=== PATIENT | female | born 1980 | race American Indian/Alaskan Native ===

== ENCOUNTER 2018-07-29 12:32 | Emergency (ER) | payer MEDICARE, MEDICAID ==
--- NOTE | 2018-07-29 13:04 | EDM.PDOC ---
ED HPI GENERAL MEDICAL PROBLEM - General Chief Complaint: IV Access Related Stated Complaint: AMBULANCE Time Seen by Provider: 07/29/18 13:03 Source of Information: Reports: Patient, EMS, Old Records, RN, RN Notes Reviewed History Limitations: Reports: No Limitations - History of Present Illness INITIAL COMMENTS - FREE TEXT/NARRATIVE: Pt sent to ER by ambulance by home health nurse with report that pt's Rt upper arm PICC line is occluded. The line will flush, but slowly, and blood cannot be drawn back. The pt reports some mild soreness in the area, but denies redness, fever, chills, or swelling. Onset: Unknown/Unsure Duration: Constant Improves with: Reports: None Worsens with: Reports: None Right Upper Arm Pain Score (Numeric/FACES): 7 - Related Data Allergies Allergy/AdvReac Type Severity Reaction Status Date / Time No Known Allergies Allergy Verified 04/30/13 19:10 Home Meds: Home Meds Fish Oil/[place]-3 Fatty Acids [Fish Oil] 1 each PO 04/30/13 [History] Gabapentin 04/30/13 [History] Multivitamin with Minerals [Multiple Vitamin] 1 tab PO DAILY 04/30/13 [History] Past Medical History Musculoskeletal History: Reports: Other (See Below) Other Musculoskeletal History: quadapalegic Dermatologic History: Reports: Decubitus Ulcer Social & Family History - Tobacco Use Smoking Status *Q: Never Smoker Second Hand Smoke Exposure: No - Recreational Drug Use Recreational Drug Use: No - Living Situation & Occupation Occupation: Disabled ED ROS GENERAL - Review of Systems Review Of Systems: ROS reveals no pertinent complaints other than HPI. ED EXAM, GENERAL - Physical Exam Exam: See Below Exam Limited By: Physical Impairment (quadraplegic) General Appearance: Alert, No Apparent Distress, Obese Throat/Mouth: Normal Voice Head: Atraumatic, Normocephalic Neck: Normal Inspection Respiratory/Chest: No Respiratory Distress Cardiovascular: Regular Rate, Rhythm, Bradycardia Peripheral Pulses: 3+: Radial (L), Radial (R) Extremities: Normal Capillary Refill, Other (mild tenderness to palpation around the PICC line insertion with no visible swelling, bruising, increased warmth or erythema). No: Increased Warmth, Redness Neurological: Alert, Oriented Psychiatric: Normal Mood Skin Exam: Warm, Dry Course - Vital Signs Last Recorded V/S: Last Vital Signs Temp 36.4 C 07/29/18 12:42 Pulse 48 L 07/29/18 12:42 Resp 18 07/29/18 12:42 BP 88/46 L 07/29/18 12:42 Pulse Ox 98 07/29/18 12:42 - Orders/Labs/Meds Meds: Medications Discontinued Medications Generic Name Dose Route Start Last Admin Trade Name Jeannie PRN Reason Stop Dose Admin Alteplase, Recombinant 2 mg 07/29/18 13:19 07/29/18 13:57 Cathflo Activase IVPUSH 07/29/18 13:20 2 mg ONETIME ONE Administration RN reports successful flush and draw back following PICC line Alteplase. Departure - Departure Time of Disposition: 16:13 Disposition: Home, Self-Care 01 Condition: Good Clinical Impression: Occlusion of peripherally inserted central catheter (PICC) line Qualifiers: Encounter type: initial encounter Qualified Code(s): T82.898A - Other specified complication of vascular prosthetic devices, implants and grafts, initial encounter - Discharge Information *PRESCRIPTION DRUG MONITORING PROGRAM REVIEWED*: No *COPY OF PRESCRIPTION DRUG MONITORING REPORT IN PATIENT ALEXIS: No Instructions: PICC Home Care Guide Forms: ED Department Discharge Additional Instructions: Continue PICC line care routine with your home health nurse.
[2018-07-29] MEDS ORDERED: Alteplase 2 MG Vial IVPUSH ONE (13:19)
== END 2018-07-29 16:48 | disposition home or self-care (01) ==
LOC: DL.ED 12:32
DX: T82.898A Other specified complication of vascular prosthetic devices, implants and grafts, initial encounter (principal); Z79.899 Other long term (current) drug therapy
CPT/HCPCS: 96374; 99284; J2997; 36415; 82565; 84460; 85025; 85651; 86140

== ENCOUNTER 2024-06-30 12:50 | Emergency (ER) | payer MEDICARE, MEDICAID ==
[2024-06-30 14:09] LABS: BASOPHILS PERCENT AUTO 0.1 % (0.0-1.0); HEMOGLOBIN 10.8 g/dL (12.0-16.0); MEAN CORPUSCULAR HEMOGLOBIN 28.6 pg (27.0-34.0); MEAN CORPUSCULAR HGB CONC 30.9 g/dL (33.0-35.0); MEAN CORPUSCULAR VOLUME 92.8 fL (80-100); MONOCYTES PERCENT AUTO 11.9 % (2-8); PLATELET COUNT,PLT 281 10^3/uL (150-450); RED BLOOD CELL COUNT 3.77 10^6/uL (4.2-5.4); WHITE BLOOD CELL COUNT,WBC 8.3 10^3/uL (5.0-10.0)
[2024-06-30 14:34] LABS: LACTIC ACID 1.3 mmol/L (0.4-2.0)
[2024-06-30 14:37] LABS: A/G RATIO 0.65; ALANINE AMINOTRANSFERASE,ALT 33 U/L (14-59); ALBUMIN 2.8 g/dL (3.4-5.0); ALKALINE PHOSPHATASE 87 U/L (46-116); ANION GAP 10.2 mEq/L (7-13); ASPARTATE AMNIOTRANSFERASE,AST 14 U/L (15-37); BILIRUBIN TOTAL 0.5 mg/dL (0.2-1.0); BLOOD UREA NITROGEN,BUN 9 mg/dL (7-18); BUN/CREATININE RATIO 10.2 (No establ ref range); CALCIUM 8.5 mg/dL (8.5-10.1); CARBON DIOXIDE,CO2 27 mmol/L (21-32); CHLORIDE,CL 102 mmol/L (98-107); CREATININE 0.88 mg/dL (0.55-1.02); ESTIMATED GFR 83 mL/min (>=60); GLUCOSE RANDOM 123 mg/dL (70-99); POTASSIUM,K 4.2 mmol/L (3.5-5.1); PROTEIN TOTAL,TP 7.1 g/dL (6.4-8.2); SODIUM,NA 135 mmol/L (136-145)
[2024-06-30] MEDS: Iopamidol 612 MG/ML 100 ML Bottle IVPUSH ONE (15:06)
== END 2024-06-30 15:18 ==
LOC: DL.ED 12:50
DX: R33.9 Retention of urine, unspecified (principal); Z88.1 Allergy status to other antibiotic agents; Z88.8 Allergy status to other drugs, medicaments and biological substances; Z79.899 Other long term (current) drug therapy
CPT/HCPCS: 36415; 74177; 80053; 83605; 85025; 99284; Q9967

== ENCOUNTER 2024-07-04 20:54 | Emergency (ER) | payer MEDICARE, MEDICAID | END 2024-07-05 00:06 | LOC: DL.ED 20:54 | DX: T83.010A Breakdown (mechanical) of cystostomy catheter, initial encounter (principal); N31.9 Neuromuscular dysfunction of bladder, unspecified; Z88.1 Allergy status to other antibiotic agents; Z79.899 Other long term (current) drug therapy | CPT/HCPCS: 99284 ==

== ENCOUNTER 2024-11-21 10:00 | Emergency (ER) | payer MEDICARE, MEDICAID ==
[2024-11-21] MEDS ORDERED: Sodium Chloride 0.9% 10 ML Syringe FLUSH PRN (10:11)
[2024-11-21 10:16] LABS: O2 DELIVERY DEVICE VENTILATOR
[2024-11-21] MEDS ORDERED: Hydrocortisone Sodium Succinate 100 MG/2 ML SDV IVPUSH ONE (10:16)
[2024-11-21 10:33] LABS: INR 2.1 (0.9-1.2)
[2024-11-21 10:37] LABS: PCO2 VENOUS 59 mmHg (41-51); PH,VENOUS 6.84 (7.31-7.41)
[2024-11-21 10:38] LABS: BASE EXCESS VENOUS -25.5 mmol/l ((-2)-(+3)); BICARBONATE,VENOUS 9 mmol/l (19-25); O2 SATURATION VENOUS 37.8 % (60-80); PO2 VENOUS 39 mmHg (35-42)
[2024-11-21 10:39] LABS: PLATELET COUNT,PLT 101 10^3/uL (150-450); RED BLOOD CELL COUNT 4.26 10^6/uL (4.2-5.4); WHITE BLOOD CELL COUNT,WBC 20.4 10^3/uL (5.0-10.0)
[2024-11-21 10:42] LABS: BASOPHILS PERCENT AUTO 0.2 % (0.0-1.0); EOSINOPHILS PERCENT AUTO 0.2 % (1.0-3.0); LYMPHOCYTES PERCENT AUTO 13.7 % (20.5-50.1); MONOCYTES PERCENT AUTO 8.7 % (2-8); NEUTROPHILS PERCENT AUTO 77.2 % (42.2-75.2)
[2024-11-21 10:47] LABS: BILIRUBIN TOTAL 6.1 mg/dL (0.2-1.0); BLOOD UREA NITROGEN,BUN 37 mg/dL (7-18); CARBON DIOXIDE,CO2 11 mmol/L (21-32); CHLORIDE,CL 98 mmol/L (98-107); CREATININE 3.55 mg/dL (0.55-1.02); GLUCOSE RANDOM 79 mg/dL (70-99); POTASSIUM,K 5.5 mmol/L (3.5-5.1); PROTEIN TOTAL,TP 6.6 g/dL (6.4-8.2); SODIUM,NA 135 mmol/L (136-145)
[2024-11-21 10:50] LABS: A/G RATIO 0.69; ESTIMATED GFR 15 mL/min (>=60)
[2024-11-21 11:04] LABS: LACTIC ACID 13.3 mmol/L (0.4-2.0)
[2024-11-21 11:28] LABS: LYMPHOCYTES PERCENT MAN 18 % (20-50); MONOCYTES PERCENT MAN 10 % (2-8); NRBC MANUAL 2 /100WBC; SEG NEUTROPHILS PERCENT MAN 72 % (42-75)
[2024-11-21 11:48] LABS: ASPARTATE AMNIOTRANSFERASE,AST > 1000 U/L (15-37)
[2024-11-21 11:49] LABS: ALANINE AMINOTRANSFERASE,ALT > 1000 U/L (14-59)
[2024-11-21 11:59] LABS: O2 DELIVERY DEVICE VENTILATOR
[2024-11-21 12:01] LABS: BASE EXCESS VENOUS -23.4 mmol/l ((-2)-(+3)); BICARBONATE,VENOUS 10 mmol/l (19-25); O2 SATURATION VENOUS 71.9 % (60-80); PCO2 VENOUS 52 mmHg (41-51); PH,VENOUS 6.91 (7.31-7.41); PO2 VENOUS 57 mmHg (35-42)
[2024-11-21] MEDS ORDERED: ACETYLCYSTEINE IV ONE ×2 (12:15→16:35)
[2024-11-21] MEDS ORDERED: DEXTROSE 5% IV ONE ×2 (12:15→16:35)
[2024-11-21] MEDS ORDERED: WATER IV ONE ×2 (12:15→16:35)
[2024-11-21] MEDS ORDERED: Norepinephrine Bit/D5W Premix 250 ML ONE (12:33)
== END 2024-11-21 12:45 ==
LOC: DL.ED 10:46
DX: T39.1X1A Poisoning by 4-Aminophenol derivatives, accidental (unintentional), initial encounter (principal); A41.9 Sepsis, unspecified organism; R65.21 Severe sepsis with septic shock; N17.9 Acute kidney failure, unspecified; Z88.0 Allergy status to penicillin; Z88.1 Allergy status to other antibiotic agents; Z88.8 Allergy status to other drugs, medicaments and biological substances; Z79.899 Other long term (current) drug therapy
CPT/HCPCS: 31500; 36415; 36430; 43752; 51702; 70450; 71045; 74176; 80053; 80143; 80179; 82140; 82803; 82947; 83605; 83735; 85025; 85610; 86140; 86850; 86900; 86901; 86920; 86922; 87040; 87077; 87186; 93005; 96360; 96365; 96366; 96374; 96375; 99291; 99292; P9016